=== PATIENT | female | born 2005 | race Two or more races ===

== ENCOUNTER 2025-07-11 06:37 | Inpatient (IN) | payer OTHER ==
[~2025-07-11] VITALS: Ht 170.2 cm; Wt 52.4 kg
--- NOTE | 2025-07-11 06:47 | ED.PDOC ---
GI ASSESSMENT HPI Comments 19 year old female JACEY presenting to the ED with chief complaint of abdominal pain. Patient reports that she has been experiencing generalized abdominal pain yesterday around 7pm before eating, however, after eating she started to have associated symptoms of nausea and vomiting with increased pain. Patient relays that she has not had any bowel movement or passing of gas since onset of pain. Patient states she was seen at [facility] ER and was told that a CT performed showed a bowel obstruction, being transferred here for further evaluation and treatment. Patient denies any fever, chills, dysuria, flank pain, diarrhea, or headache. Time Seen by MD: 06:46 Reviewed Notes: Nurses Notes, Turf Keeper Notes, Medications, Allergies Allergies: Coded Allergies: Iodine (Verified Allergy, Intermediate, 07/11/25) Latex (Verified Allergy, Intermediate, 07/11/25) Information Source: Patient, Emergency Med Personnel Mode of Arrival: EMS Timing: Hours Duration: Since onset Prehospital treatment: None Quality: Aching Vomitus: Watery Stool: Impaction Severity: Moderate Recent: None Recent Hx of: None Pain Location: Diffuse Modifying Factors: Nothing Associated sign and symptoms: Nausea, Vomiting, Abdominal Pain Past Medical History PAST MEDICAL HISTORY: Denies Surgical History: Denies all surgeries ASSISTANT GM OF CONTENT & DELIVERY History: No Pertinent ASSISTANT GM OF CONTENT & DELIVERY History Family History Family History: Reviewed,noncontributory to illness Social History Smoker: Non-Smoker Alcohol: Denies ETOH Use Drugs: Denies Drug Use Lives In: Home Constitutional: denies: chills, diaphoresis, fatigue, fever, malaise, sweats, weakness, others EENTM: denies: blurred vision, double vision, ear bleeding, ear discharge, ear drainage, ear pain, ear ringing, eye pain, eye redness, hearing loss, mouth pain, mouth swelling, nasal discharge, nose bleeding, nose congestion, nose pain, photophobia, tearing, throat pain, throat swelling, voice changes, others Respiratory: denies: cough, hemoptysis, orthopnea, SOB at rest, shortness of breath, SOB with excertion, stridor, wheezing, others Cardiovascular: denies: chest pain, dizzy spells, diaphoresis, Dyspnea on exertion, edema, irregular heart beat, left arm pain, lightheadedness, palpitations, PND, syncope, others Gastrointestinal: reports: abdominal pain, nausea, vomiting; denies: abdomen distended, blood streaked bowels, constipated, diarrhea, dysphagia, difficulty swallowing, hematemesis, melena, poor appetite, poor fluid intake, rectal bleeding, rectal pain, others Genitourinary: denies: abnormal vagina bleeding, burning, dyspareunia, dysuria, flank pain, frequency, hematuria, incontinence, pain, , vagina discharge, urgency, others Neurological: denies: dizziness, fainting, headache, left sided numbness, left sided weakness, numbness, paresthesia, pre-existing deficit, right sided numbness, right sided weakness, seizure, speech problems, tingling, tremors, weakness, others Musculoskeletal: denies: back pain, gout, joint pain, joint swelling, muscle pain, muscle stiffness, neck pain, others Integumetry: denies: bruises, change in color, change in hair/nails, dryness, laceration, lesions, lumps, rash, wounds, others Allergic/Immunocompromised: denies: Difficulty Healing, Frequent Infections, Hives, Itching, others Hematologic/Lymphatic: denies: anemia, blood clots, easy bleeding, easy bruising, swollen glands, others Endocrine: denies: excessive hunger, excessive sweating, excessive thirst, excessive urination, flushing, intolerance to cold, intolerance to heat, unexpl ained weight gain, unexplained weight loss, others Psychiatric: denies: anxiety, bipolar disorder, depression, hopeless, panic disorder, schizophrenia, sleepless, suicidal, others All Other Systems: Reviewed and Negative Physical Exam General Appearance: Moderate Distress, Normal HEENT: Normal ENT Inspection, Pharynx Normal, TMs Normal Neck: Full Range of Motion, Non-Tender, Normal, Normal Inspection Respiratory: Chest Non-Tender, Lungs Clear, No Accessory Muscle Use, No Respiratory Distress, Normal Breath Sounds Cardiovascular: No Edema, No JVD, No Murmur, No Gallop, Normal Peripheral Pulses, Regular Rate/Rhythm Breast Exam: Deferred Gastrointestinal: No Organomegaly, Non Tender, No Pulsatile Mass, Normal Bowel Sounds, Soft Genitalia: Deferred Pelvic: Deferred Rectal: Deferred Extremities: No calf tenderness, Normal capillary refill, Normal inspection, Normal range of motion, Non-tender, No pedal edema Musculoskeletal : Apperance: Normal Neurologic: Alert, lcsw II-XII nml as Tested, No Motor Deficits, Normal Affect, Normal Mood, No Sensory Deficits Cerebellar Function: Normal Reflexes: Normal Skin: Dry, Normal Color, Warm Peripheral Pulses: 3+ Radial (R), 3+ Radial (L) Lymphatic: No Adenopathy Was a procedure done? Was a procedure done?: No GI differential Dx Differential Diagnosis: Constipation, Diverticular disease, Esophagitis, Gastritis/PUD, Gastroenteritis, UTI, Dehydration, Electrolyte Imbalance, Food Poisoning, Bacterial, Viral X-Ray, Labs, Meds, VS Vital Signs Date Time Temp Pulse Resp B/P (MAP) Pulse Ox O2 Delivery O2 Flow Rate FiO2 07/11/25 08:15 98.0 68 16 117/74 (88) 100 98.0 07/11/25 06:52 98.6 68 15 118/74 99 98.6 Lab Test 07/11/25 07:14 Range/Units White Blood Count 6.1 4.4-10.8 10^3/uL Red Blood Count 5.02 4.0-5.20 10^6/uL Hemoglobin 13.2 12.2-16.2 g/dL Hematocrit 39.5 36.0-46.0 % Mean Corpuscular Volume 78.7 L 80.0-100.0 fL Mean Corpuscular Hemoglobin 26.2 L 28.0-32.0 pg Mean Corpuscular Hemoglobin Concent 33.3 32.0-36.0 g/dL Red Cell Distribution Width 13.2 11.8-14.3 % Platelet Count 205 140-450 10^3/uL Mean Platelet Volume 9.7 6.9-10.8 fL Neutrophils (%) (Auto) 61.8 37.0-80.0 % Lymphocytes (%) (Auto) 27.7 10.0-50.0 % Monocytes (%) (Auto) 7.9 0.0-12.0 % Eosinophils (%) (Auto) 2.2 0.0-7.0 % Basophils (%) (Auto) 0.4 0.0-2.0 % Neutrophils # (Auto) 3.8 1.6-8.6 10 ^3/uL Lymphocytes # (Auto) 1.7 0.4-5.4 10 ^3/uL Monocytes # (Auto) 0.5 0-1.3 10 ^3/uL Eosinophils # (Auto) 0.1 0-0.8 10 ^3/uL Basophils # (Auto) 0 0-0.2 10 ^3/uL Nucleated Red Blood Cells 0.1 % Sodium Level 141 136-145 mmol/L Potassium Level 3.9 3.5-5.1 mmol/L Chloride Level 106 98-107 mmol/L Carbon Dioxide Level 27 20-31 mmol/L Anion Gap 8 5-15 Blood Urea Nitrogen 11 9-23 mg/dL Creatinine 0.90 0.550-1.02 mg/dL Glomerular Filtration Rate Calc 94 >90 mL/min BUN/Creatinine Ratio 12.2 10.0-20.0 Serum Glucose 86 74-106 mg/dL Calcium Level 9.0 8.7-10.4 mg/dL Total Bilirubin 0.3 0.2-1.0 mg/dL Aspartate Amino Transferase (AST) 12 L 13-40 U/L Alanine Aminotransferase (ALT) 16 7-40 U/L Alkaline Phosphatase 92 46-116 U/L Total Protein 7.0 5.7-8.2 g/dL Albumin 4.3 3.2-4.8 g/dL Current Medications Medications (Trade) Dose Ordered Sig/Denis Route Start Time Stop Time Status Last Admin Sodium Chloride 1,000 ml @ 1,000 mls/hr Q1H ONCE IVB 07/11/25 07:00 07/11/25 07:59 DC 07/11/25 08:12 Ondansetron HCl (Zofran Po) 4 mg ONCE ONCE PO 07/11/25 07:00 07/11/25 07:01 DC 07/11/25 08:12 Sodium Chloride 1,000 ml @ 150 mls/hr Q6H40M ONCE IV 07/11/25 07:00 07/11/25 13:39 07/11/25 08:13 Patient alert. Came in because of abdominal pain. Had nausea vomiting last night. Vitals stable. Does not seem to be in distress. Establish intravenous access. Was given fluids. Was given morphine. Was given Zofran. Reviewed her previous visit. Continue to monitor. [facility] [id number] [place] [id number] Ph: [phone] DIAGNOSTIC IMAGING Diagnostic Imaging Report : [id number] Signed PATIENT: JOHN JAYACCT: [id number] UNIT: [id number] : 2005 LOC: ER ROOM / BED: / AGE / SEX: 19 / F ADM STATUS: REG ER SERVICE 0733 ORDERING PHYSICIAN: RICHI TIAN MD PROCEDURE(s): SMBG - SMALL BOWEL SERIES-W GASTROGRA REASON: SBO ORDER NUMBER(s): [id number], ACCESSION NUMBER(s): [id number] Procedure: XY SMALL BOWEL SERIES-W GASTROGRA Reason for study/Clinical History: SBO Comparison Study: None Technique: Single contrast small bowel series performed. FINDINGS/IMPRESSION: Initial fur blower view of the abdomen and pelvis appears demonstrates no acute process. Contrast is identified within the colon by 1 hour. This represents a normal small bowel transit time. ATED BY: KEITH KELLER MD DICTATED DATE/TIME: 07/11/25 100 SIGNED BY: KEITH KELLER MD SIGNED DATE/TIME: 07/11/25 100 CC: Images Reviewed?: Images reviewed and evaluated by me Time of 1ST Reevaluation: 07:39 Reevaluation 1ST: Unchanged Patient Education/Counseling: Diagnosis, Treatment Family Education/Counseling: Diagnosis, Treatment SEPSIS Sepsis Screen Physician Orders Urinalysis (07/11/25 06:52) Sodium Chloride 0.9% (07/11/25 07:00) Small Bowel Series-W Gastrogra (07/11/25 07:33) Vital Signs Date Time Temp Pulse Resp B/P (MAP) Pulse Ox O2 Delivery O2 Flow Rate FiO2 07/11/25 08:15 98.0 68 16 117/74 (88) 100 98.0 07/11/25 06:52 98.6 68 15 118/74 99 98.6 Laboratory Tests Test 07/11/25 07:14 White Blood Count 6.1 10^3/uL (4.4-10.8) Medications Medications Dose Ordered Sig/Denis Route Start Time Stop Time Status Last Admin Dose Admin Ondansetron HCl 4 mg ONCE ONCE PO 07/11/25 07:00 07/11/25 07:01 DC 07/11/25 08:12 Sodium Chloride 1,000 ml @ 150 mls/hr Q6H40M ONCE IV 07/11/25 07:00 07/11/25 13:39 8/29/25 08:13 Sodium Chloride 1,000 ml @ 1,000 mls/hr Q1H ONCE IVB 07/11/25 07:00 07/11/25 07:59 DC 07/11/25 08:12 Departure 1 Departure Time of Disposition: 07:00 Impression: Primary Impression: Abdominal pain Qualified Codes: R10.84 - Generalized abdominal pain Additional Impression: Small bowel obstruction Disposition: ADMITTED INPATIENT Admit to: Med Surg Condition: Guarded Critical Care Note Critical Care Time?: No Stability Stability form required: No Heart Score Heart Score: Heart Score Response (Comments) Value History N/A 0 EKG N/A 0 Age N/A 0 Risk Factors N/A 0 Troponin N/A 0 Total 0 I personally scribed for RICHI TIAN MD ([email or web address]) on 07/11/25 at 06:47. Electronically submitted by Nura Munoz ([email or web address]). I personally scribed for RICHI TIAN MD ([email or web address]) on 07/11/25 at 10:17. Electronically submitted by Nura Munoz ([email or web address]). RICHI TIAN MD Jul 11, 2025 06:47
[2025-07-11 07:41] LABS: Hemoglobin 13.2 g/dL (12.2-16.2); Mean Corpuscular Volume 78.7 fL (80.0-100.0)
[2025-07-11 07:43] LABS: Hematocrit 39.5 % (36.0-46.0); Mean Corpuscular Hemoglobin 26.2 pg (28.0-32.0); Nucleated Red Blood Cells % 0.1 %
[2025-07-11 07:53] LABS: Alanine Aminotransferase 16 U/L (7-40); Albumin 4.3 g/dL (3.2-4.8); Alkaline Phosphatase 92 U/L (46-116); Anion Gap 8 (5-15); BUN/Creatinine Ratio 12.2 (10.0-20.0); Blood Urea Nitrogen 11 mg/dL (9-23); Calcium 9.0 mg/dL (8.7-10.4); Carbon Dioxide 27 mmol/L (20-31); Chloride 106 mmol/L (98-107); Glucose 86 mg/dL (74-106); Potassium 3.9 mmol/L (3.5-5.1); Sodium 141 mmol/L (136-145); Total Protein 7.0 g/dL (5.7-8.2)
[2025-07-11 07:54] LABS: Bilirubin, Total 0.3 mg/dL (0.2-1.0)
[2025-07-11] MEDS: SODIUM CHLORIDE 0.9% 1,000 ML IVB ONE (08:12)
[2025-07-11] MEDS: ONDANSETRON ODT 4 MG TAB PO ONE (08:12)
[2025-07-11] MEDS: SODIUM CHLORIDE 0.9% 1,000 ML IV ONE (08:13)
[2025-07-11] MEDS: MORPHINE SULFATE 4 MG/ML SYR/VIAL IV ONE (08:57)
[2025-07-11] MEDS: GASTROGRAFIN 120 ML SOL ONE (10:07)
--- NOTE | 2025-07-11 10:11 | DVH ---
Procedure: XY SMALL BOWEL SERIES-W GASTROGRA Reason for study/Clinical History: SBO Comparison Study: None Technique: Single contrast small bowel series performed. FINDINGS/IMPRESSION: Initial supervisor webbing view of the abdomen and pelvis appears demonstrates no acute process. Contrast is identified within the colon by 1 hour. This represents a normal small bowel transit time .
[2025-07-11] MEDS ORDERED: MORPHINE SULFATE INJ 2 MG/ml SYRG IV PRN (11:00)
[2025-07-11] MEDS ORDERED: ONDANSETRON HCL 4 MG/2 ML VIAL IV PRN (11:00)
[2025-07-11] MEDS ORDERED: ACETAMINOPHEN 325 MG TAB PO PRN (11:00)
--- NOTE | 2025-07-11 11:05 | DVHHP2 ---
History of Present Illness Reason for Visit: Abdominal pain History of Present Illness Stormy Gonzales is a 19-year-old female with no past medical history who presents to the ED with abdominal pain that started yesterday. Patient had a CT scan last night at [facility] as her mom is in the service and findings moderately distended small bowel loops with relative decompression of distal small bowel, concerning for SBO. Patient was transferred here via EMS. Patient reports that she thought it was due to her not eating so she decided to eat last night but had no relief. Patient denies any use of substances or alcohol or tobacco use. Patient denies any recent travels, recent ingestion of spoiled food, recent trauma or injury, recent sick contacts, chest pain, shortness of breath, fever, chills, lightheadedness, weakness, dizziness, or urinary symptoms. 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 Past Surgical History: None Family History: None Smoke: No ALCOHOL: none Drugs: None Lives: with Family Domestic Violence: Neg Review of Systems Gastrointestinal: Abdominal Pain Allergies: Coded Allergies: Iodine (Verified Allergy, Intermediate, 07/11/25) Latex (Verified Allergy, Intermediate, 07/11/25) Exam Vital Signs Vital Signs Date Time Temp Pulse Resp B/P (MAP) Pulse Ox O2 Delivery O2 Flow Rate FiO2 07/11/25 08:15 98.0 68 16 117/74 (88) 100 98.0 General Appearance: Alert, Oriented X3, Cooperative, No acute distress HEENT: Atraumatic, PERRLA, EOMI, Mucous membr. moist/pink Respiratory: Clear to auscultation, Normal air movement Cardiovascular: Regular rate, Normal S1, Normal S2, No murmurs Abdominal: Soft Extremities: No clubbing, No cyanosis, No edema, Normal pulses, No tenderness/swelling Skin: No rashes, No breakdown, No significant lesion Neuro: Normal gait, Normal speech, Strength at 5/5 X4 ext, Normal tone, Sensation intact Psych/Mental Status: Mental status NL Labs/Xrays Labs Test 07/11/25 07:14 Range/Units White Blood Count 6.1 4.4-10.8 10^3/uL Red Blood Count 5.02 4.0-5.20 10^6/uL Hemoglobin 13.2 12.2-16.2 g/dL Hematocrit 39.5 36.0-46.0 % Mean Corpuscular Volume 78.7 L 80.0-100.0 fL Mean Corpuscular Hemoglobin 26.2 L 28.0-32.0 pg Mean Corpuscular Hemoglobin Concent 33.3 32.0-36.0 g/dL Red Cell Distribution Width 13.2 11.8-14.3 % Platelet Count 205 140-450 10^3/uL Mean Platelet Volume 9.7 6.9-10.8 fL Neutrophils (%) (Auto) 61.8 37.0-80.0 % Lymphocytes (%) (Auto) 27.7 10.0-50.0 % Monocytes (%) (Auto) 7.9 0.0-12.0 % Eosinophils (%) (Auto) 2.2 0.0-7.0 % Basophils (%) (Auto) 0.4 0.0-2.0 % Neutrophils # (Auto) 3.8 1.6-8.6 10 ^3/uL Lymphocytes # (Auto) 1.7 0.4-5.4 10 ^3/uL Monocytes # (Auto) 0.5 0-1.3 10 ^3/uL Eosinophils # (Auto) 0.1 0-0.8 10 ^3/uL Basophils # (Auto) 0 0-0.2 10 ^3/uL Nucleated Red Blood Cells 0.1 % Sodium Level 141 136-145 mmol/L Potassium Level 3.9 3.5-5.1 mmol/L Chloride Level 106 98-107 mmol/L Carbon Dioxide Level 27 20-31 mmol/L Anion Gap 8 5-15 Blood Urea Nitrogen 11 9-23 mg/dL Creatinine 0.90 0.550-1.02 mg/dL Glomerular Filtration Rate Calc 94 >90 mL/min BUN/Creatinine Ratio 12.2 10.0-20.0 Serum Glucose 86 74-106 mg/dL Calcium Level 9.0 8.7-10.4 mg/dL Total Bilirubin 0.3 0.2-1.0 mg/dL Aspartate Amino Transferase (AST) 12 L 13-40 U/L Alanine Aminotransferase (ALT) 16 7-40 U/L Alkaline Phosphatase 92 46-116 U/L Total Protein 7.0 5.7-8.2 g/dL Albumin 4.3 3.2-4.8 g/dL Procedure: XY SMALL BOWEL SERIES-W GASTROGRA Reason for study/Clinical History: SBO Comparison Study: None Technique: Single contrast small bowel series performed. FINDINGS/IMPRESSION: Initial gandy dancer view of the abdomen and pelvis appears demonstrates no acute process. Contrast is identified within the colon by 1 hour. This represents a normal small bowel transit time. SEPSIS Sepsis Screen Date sepsis recognized/suspect: Jul 11, 2025 Time Sepsis recognized/suspect: 634 Recent Procedure: No On Antibiotic Therapy: No Respiratory Rate >20: No Heart Rate >90: No Temp<36 C (96.8 F) or >38.3 C: No SBP <90 or MAP <65 mmHG: No New Acute Mental Status Change: No Is the patient on CPAP, BIPAP,: No Physician Orders Urinalysis (07/11/25 06:52) Sodium Chloride 0.9% (07/11/25 07:00) Small Bowel Series-W Gastrogra (07/11/25 07:33) Vital Signs Date Time Temp Pulse Resp B/P (MAP) Pulse Ox O2 Delivery O2 Flow Rate FiO2 07/11/25 08:15 98.0 68 16 117/74 (88) 100 98.0 07/11/25 06:52 98.6 68 15 118/74 99 98.6 Laboratory Tests Test 07/11/25 07:14 White Blood Count 6.1 10^3/uL (4.4-10.8) Medications Medications Dose Ordered Sig/Denis Route Start Time Stop Time Status Last Admin Dose Admin Ondansetron HCl 4 mg ONCE ONCE PO 07/11/25 07:00 07/11/25 07:01 DC 07/11/25 08:12 4 MG Sodium Chloride 1,000 ml @ 150 mls/hr Q6H40M ONCE IV 07/11/25 07:00 07/11/25 13:39 07/11/25 08:13 150 MLS/HR Sodium Chloride 1,000 ml @ 1,000 mls/hr Q1H ONCE IVB 07/11/25 07:00 07/11/25 07:59 DC 07/11/25 08:12 1,000 MLS/HR Assessment/Plan Assessment/Plan Assessment Intractable abdominal pain likely due to SBO Plan Admit to med surge Pain Management Antiemetics Bowel series UA UDS HCG NPO IV fluids Home medications reconciled DVT prophylaxis-SCDs PUD prophylaxis-PPIs Discussed plan of care with patient, patient's mom and nurse General surgery consult [id number] Preventive counseling healthy eating habits, physical activity, and regular checkups Plan discussed with: Patient Date of Service: Jul 11, 2025 Billing Provider: DARIELA TOLEDO Common Visit Codes: [id number] INP/OBS CARE (HIGH) Secondary Visit Codes: [id number] COUNSELING IND DARIELA TOLEDO Jul 11, 2025 11:05
[2025-07-11] MEDS: SODIUM CHLORIDE 0.9% 1,000 ML IV SCH (11:20)
[2025-07-11] MEDS ORDERED: BUPR150T18 PO (11:24)
[2025-07-11] MEDS ORDERED: HYDRX10T PO (11:24)
[2025-07-11 13:05] VITALS: BP 107/73; PULSE 78; RESP 18; TEMP 98.8; O2SAT 95
[2025-07-11] MEDS: hydrOXYzine HCL 10 MG TAB PO SCH (14:00)
--- NOTE | 2025-07-11 14:34 | DVHINCON2 ---
Date of service: Jul 11, 2025 History of Present Illness 19-year-old female complaining of one day history of right-sided abdominal pain associated with nausea. Patient was initially seen at an outside facility and when imaging studies showed possible small bowel obstruction. Patient was transferred over to [facility]. Currently patient denies any abdominal pain and reports having a bowel movement. Past Medical History Anxiety disorder Past Surgical History None Family History Noncontributory Social History No alcohol, tobacco, IV drug use Allergies: Coded Allergies: Iodine (Verified Allergy, Intermediate, 07/11/25) Latex (Verified Allergy, Intermediate, 07/11/25) Home Meds Reported Medications Hydroxyzine Hcl (Hydroxyzine Hcl) 10 Mg Tab, 1 TAB PO TID 07/11/25 Bupropion Hcl (Bupropion Hcl Xl) 150 Mg Tab, 1 TAB PO DAILY 07/11/25 Current Medications Current Medications Medications (Trade) Dose Ordered Sig/Denis Route PRN Reason Start Time Stop Time Status Last Admin Sodium Chloride 1,000 ml @ 60 mls/hr [id number] IV 07/11/25 11:00 Acetaminophen/ Hydrocodone Bitart ([place] 5/325MG Tab) 1 tab Q4HP PRN PO MODERATE PAIN (4-6 PAIN SCALE) 07/11/25 11:00 Ondansetron HCl (Zofran) 4 mg Q4HP PRN IV NAUSEA / VOMITING 07/11/25 11:00 Acetaminophen (Tylenol Tablet) 650 mg Q6HP PRN PO PAIN SCALE 1-3 OR TEMP>100.4 07/11/25 11:00 Morphine Sulfate 2 mg Q4HPRN PRN IV SEVERE PAIN (7-10 PAIN SCALE) 07/11/25 11:00 Hydroxyzine HCl (Vistaril Oral) 10 mg TID PO 07/11/25 14:00 Patient Own Medication 1 tab DAILY PO 07/12/25 10:00 Vital Signs Vital Signs Date Time Temp Pulse Resp B/P (MAP) Pulse Ox O2 Delivery O2 Flow Rate FiO2 07/11/25 13:05 98.8 78 18 107/73 (84) 95 98.8 Physical Exam GEN: Age-appropriate female in no acute distress. Alert. HEENT: Normocephalic atraumatic. Moist mucous membranes. Anicteric sclerae. CV: RRR Respiratory: CTAB ABD: Soft. Nontender nondistended. Small-bowel follow-through: Normal transit Labs/Diagnostic Data Labs Test 07/11/25 07:14 Range/Units White Blood Count 6.1 4.4-10.8 10^3/uL Red Blood Count 5.02 4.0-5.20 10^6/uL Hemoglobin 13.2 12.2-16.2 g/dL Hematocrit 39.5 36.0-46.0 % Mean Corpuscular Volume 78.7 L 80.0-100.0 fL Mean Corpuscular Hemoglobin 26.2 L 28.0-32.0 pg Mean Corpuscular Hemoglobin Concent 33.3 32.0-36.0 g/dL Red Cell Distribution Width 13.2 11.8-14.3 % Platelet Count 205 140-450 10^3/uL Mean Platelet Volume 9.7 6.9-10.8 fL Neutrophils (%) (Auto) 61.8 37.0-80.0 % Lymphocytes (%) (Auto) 27.7 10.0-50.0 % Monocytes (%) (Auto) 7.9 0.0-12.0 % Eosinophils (%) (Auto) 2.2 0.0-7.0 % Basophils (%) (Auto) 0.4 0.0-2.0 % Neutrophils # (Auto) 3.8 1.6-8.6 10 ^3/uL Lymphocytes # (Auto) 1.7 0.4-5.4 10 ^3/uL Monocytes # (Auto) 0.5 0-1.3 10 ^3/uL Eosinophils # (Auto) 0.1 0-0.8 10 ^3/uL Basophils # (Auto) 0 0-0.2 10 ^3/uL Nucleated Red Blood Cells 0.1 % Sodium Level 141 136-145 mmol/L Potassium Level 3.9 3.5-5.1 mmol/L Chloride Level 106 98-107 mmol/L Carbon Dioxide Level 27 20-31 mmol/L Anion Gap 8 5-15 Blood Urea Nitrogen 11 9-23 mg/dL Creatinine 0.90 0.550-1.02 mg/dL Glomerular Filtration Rate Calc 94 >90 mL/min BUN/Creatinine Ratio 12.2 10.0-20.0 Serum Glucose 86 74-106 mg/dL Calcium Level 9.0 8.7-10.4 mg/dL Total Bilirubin 0.3 0.2-1.0 mg/dL Aspartate Amino Transferase (AST) 12 L 13-40 U/L Alanine Aminotransferase (ALT) 16 7-40 U/L Alkaline Phosphatase 92 46-116 U/L Total Protein 7.0 5.7-8.2 g/dL Albumin 4.3 3.2-4.8 g/dL Assessment 1. Resolved partial small bowel obstruction Plan/Recommendation 1. No acute indication for surgical intervention at this time. Plan discussed with: Patient, Other (mom) MIRACLE BYERS MD Jul 11, 2025 14:34
[2025-07-11 16:51] VITALS: BP 101/56; PULSE 91; RESP 18; TEMP 97.1; O2SAT 98
[2025-07-11 18:25] LABS: Urine Protein, UAD Negative (Negative)
[2025-07-11 18:36] LABS: Amphetamine Screen, Urine Neg (NEGATIVE)
[2025-07-11 18:43] LABS: Barbiturate Scree,Urine Neg (NEGATIVE); Benzodiazephine Screen, Urine Neg (NEGATIVE); Cannabinoid Screen, Urine Neg (NEGATIVE); Cocaine Screen, Urine Neg (NEGATIVE); Opiate Scree,Urine Neg (NEGATIVE); Phencyclidine Screen, Urine Neg (NEGATIVE)
[2025-07-11 20:17] VITALS: PULSE 93; RESP 18; O2SAT 98
[2025-07-11 21:00] VITALS: BP 102/57; PULSE 75; RESP 18; TEMP 97.9; O2SAT 98
[2025-07-12] VITALS (8 sets, daily range): BP systolic 95–117; BP diastolic 53–74; PULSE 60–90; RESP 17–20; TEMP 97–98.3; O2SAT 96–98
[2025-07-12 07:19] LABS: Hemoglobin 12.0 g/dL (12.2-16.2)
[2025-07-12 07:21] LABS: Hematocrit 36.8 % (36.0-46.0); Mean Corpuscular Hemoglobin 25.7 pg (28.0-32.0); Mean Corpuscular Volume 78.7 fL (80.0-100.0); Nucleated Red Blood Cells % 0.0 %
[2025-07-12 07:24] LABS: Alanine Aminotransferase 13 U/L (7-40); Alkaline Phosphatase 78 U/L (46-116); Anion Gap 7 (5-15); BUN/Creatinine Ratio 14.1 (10.0-20.0); Blood Urea Nitrogen 10 mg/dL (9-23); Carbon Dioxide 23 mmol/L (20-31); Glucose 79 mg/dL (74-106); Potassium 3.8 mmol/L (3.5-5.1); Sodium 140 mmol/L (136-145); Total Protein 5.8 g/dL (5.7-8.2)
[2025-07-12 07:25] LABS: Albumin 3.7 g/dL (3.2-4.8); Bilirubin, Total 0.4 mg/dL (0.2-1.0)
[2025-07-12 07:27] LABS: Calcium 8.3 mg/dL (8.7-10.4); Chloride 110 mmol/L (98-107)
--- NOTE | 2025-07-12 10:26 | DVHPN2 ---
Subjective The patient is seen and examined at bedside. The patient feels better. Abdominal pain improved. Patient only had liquid stool right now. Reviewed: Care Plan, H&P, Labs, Medications, Previous Orders, Radiology Changes from previous H/P or p: No Changes Gastrointestinal: Abdominal Pain Objective Vitals Vital Signs Date Time Temp Pulse Resp B/P (MAP) Pulse Ox O2 Delivery O2 Flow Rate FiO2 07/12/25 09:00 98.3 74 20 95/53 (67) 96 98.3 07/11/25 20:17 Room Air* 0 21 Intake/Output Intake and Output 07/12/25 07:00 Intake Total 1550 ml Balance 1550 ml Intake Oral 400 ml IV Total 1150 ml General Appearance: Alert, Oriented X3, Cooperative, No acute distress HEENT: Atraumatic, PERRLA, EOMI, Mucous membr. moist/pink Neck: Supple Lungs: Clear to auscultation, Normal air movement Cardiovascular: Regular rate, Normal S1, Normal S2, No murmurs, Gallops, Rubs Abdomen: Normal bowel sounds, Soft, Other (Diffuse tenderness) Neuro: Cranial nerves 3-12 NL Medications Current Medications Medications Dose Ordered Sig/Denis Route Start Time Stop Time Status Last Admin Dose Admin Sodium Chloride 1,000 ml @ 60 mls/hr [id number] IV 07/11/25 11:00 07/11/25 15:40 60 MLS/HR Acetaminophen/ Hydrocodone Bitart 1 tab Q4HP PRN PO 07/11/25 11:00 Ondansetron HCl 4 mg Q4HP PRN IV 07/11/25 11:00 Acetaminophen 650 mg Q6HP PRN PO 07/11/25 11:00 Morphine Sulfate 2 mg Q4HPRN PRN IV 07/11/25 11:00 Hydroxyzine HCl 10 mg TID PO 07/11/25 14:00 07/11/25 22:09 10 MG Patient Own Medication 1 tab DAILY PO 07/12/25 10:00 Laboratory Results Laboratory Tests 07/12/25 05:52 Chemistry Test 07/12/25 05:52 Albumin 3.7 g/dL (3.2-4.8) Calcium Level 8.3 mg/dL (8.7-10.4) L Total Protein 5.8 g/dL (5.7-8.2) LFT Test 07/12/25 05:52 Alanine Aminotransferase (ALT) 13 U/L (7-40) Alkaline Phosphatase 78 U/L (46-116) Aspartate Amino Transferase (AST) 12 U/L (13-40) L Total Bilirubin 0.4 mg/dL (0.2-1.0) Urinalysis Test 07/11/25 17:15 Urine Color Yellow (Yellow) Urine Clarity Clear (Clear) Urine pH 6.0 (5.0-9.0) Urine Specific [place]up 1.033 (1.001-1.035) Urine Protein Negative (Negative) Urine Ketones 1+ (Negative) H Urine Blood Negative /uL (Negative) Urine Nitrite Negative (Negative) Urine Bilirubin Negative (Negative) Urine Urobilinogen Normal mg/dL (Negative) Urine Leukocyte Esterase Negative /uL (Negative) Urine RBC 1 /hpf (0 - 4) Urine Microscopic WBC 1 /HPF (0-5) Urine Squamous Epithelial Cells Few /hpf (<5) Urine Bacteria None seen /hpf (None Seen) Urine Mucus Few (None Seen) Urine Glucose Normal mg/dL (Normal) Labs and/or images reviewed: Labs reviewed by me Assessment/Plan Assessment/Plan Intractable abdominal pain likely due to SBO Per surgeon the patient did not need any surgery since she already had bowel movement. We will advance diet to regular diet. We will monitor her liquid stool or diarrhea. Discharge planning. This medical document was created using an electronic medical record system with [employer] direct computerized dictation system. Although this document has been carefully reviewed, there may still be some phonetic and typographical errors. These areas are purely typographical due to imperfections of the software programs, and do not reflect any compromise in the patient's medical care. Plan discussed with: Patient Date of Service: Jul 12, 2025 Billing Provider: NEFTALI PURI MD Common Visit Codes: [id number] INP/OBS CARE(HIGH) NEFTALI PURI MD Jul 12, 2025 10:26
[2025-07-12] MEDS: ACETAMINOPHEN 325 MG TAB PO PRN (12:52)
[2025-07-12] MEDS: HYDROcodone-ACET 5/325MG TAB PO PRN (18:59)
[2025-07-13 01:00] VITALS: BP 119/74; PULSE 83; RESP 19; TEMP 97.5; O2SAT 100
[2025-07-13 05:00] VITALS: BP 105/60; PULSE 74; RESP 18; TEMP 97.9; O2SAT 97
[2025-07-13 09:00] VITALS: BP 94/53; PULSE 75; RESP 20; TEMP 98.4; O2SAT 99
--- NOTE | 2025-07-13 11:34 | DVHDS2 ---
Discharge Summary Date of Admission Jul 11, 2025 at 10:51 Date of Discharge: Jul 13, 2025 Admitting Diagnosis Intractable abdominal pain likely due to SBO Labs/Diagnostic Data: Laboratory Results Test 07/12/25 05:52 07/11/25 17:15 07/11/25 07:14 White Blood Count 3.9 10^3/uL (4.4-10.8) Red Blood Count 4.68 10^6/uL (4.0-5.20) Hemoglobin 12.0 g/dL (12.2-16.2) Hematocrit 36.8 % (36.0-46.0) Mean Corpuscular Volume 78.7 fL (80.0-100.0) Mean Corpuscular Hemoglobin 25.7 pg (28.0-32.0) Mean Corpuscular Hemoglobin Concent 32.7 g/dL (32.0-36.0) Red Cell Distribution Width 13.0 % (11.8-14.3) Platelet Count 171 10^3/uL (140-450) Mean Platelet Volume 9.9 fL (6.9-10.8) Neutrophils (%) (Auto) 44.1 % (37.0-80.0) Lymphocytes (%) (Auto) 43.6 % (10.0-50.0) Monocytes (%) (Auto) 7.2 % (0.0-12.0) Eosinophils (%) (Auto) 4.5 % (0.0-7.0) Basophils (%) (Auto) 0.6 % (0.0-2.0) Neutrophils # (Auto) 1.7 10 ^3/uL (1.6-8.6) Lymphocytes # (Auto) 1.7 10 ^3/uL (0.4-5.4) Monocytes # (Auto) 0.3 10 ^3/uL (0-1.3) Eosinophils # (Auto) 0.2 10 ^3/uL (0-0.8) Basophils # (Auto) 0 10 ^3/uL (0-0.2) Nucleated Red Blood Cells 0.0 % Sodium Level 140 mmol/L (136-145) Potassium Level 3.8 mmol/L (3.5-5.1) Chloride Level 110 mmol/L (98-107) Carbon Dioxide Level 23 mmol/L (20-31) Anion Gap 7 (5-15) Blood Urea Nitrogen 10 mg/dL (9-23) Creatinine 0.71 mg/dL (0.550-1.02) Glomerular Filtration Rate Calc 126 mL/min (>90) BUN/Creatinine Ratio 14.1 (10.0-20.0) Serum Glucose 79 mg/dL (74-106) Calcium Level 8.3 mg/dL (8.7-10.4) Total Bilirubin 0.4 mg/dL (0.2-1.0) Aspartate Amino Transferase (AST) 12 U/L (13-40) Alanine Aminotransferase (ALT) 13 U/L (7-40) Alkaline Phosphatase 78 U/L (46-116) Total Protein 5.8 g/dL (5.7-8.2) Albumin 3.7 g/dL (3.2-4.8) Urine Color Yellow (Yellow) Urine Clarity Clear (Clear) Urine pH 6.0 (5.0-9.0) Urine Specific [place] 1.033 (1.001-1.035) Urine Protein Negative (Negative) Urine Ketones 1+ (Negative) Urine Blood Negative /uL (Negative) Urine Nitrite Negative (Negative) Urine Bilirubin Negative (Negative) Urine Urobilinogen Normal mg/dL (Negative) Urine Leukocyte Esterase Negative /uL (Negative) Urine RBC 1 /hpf (0 - 4) Urine Microscopic WBC 1 /HPF (0-5) Urine Squamous Epithelial Cells Few /hpf (<5) Urine Bacteria None seen /hpf (None Seen) Urine Mucus Few (None Seen) Urine Glucose Normal mg/dL (Normal) Urine Opiates Screen Neg (NEGATIVE) Urine Fentanyl Screen Neg (NEGATIVE) Urine Barbiturates Screen Neg (NEGATIVE) Urine Phencyclidine Screen Neg (NEGATIVE) Urine Amphetamines Screen Neg (NEGATIVE) Urine Benzodiazepines Screen Neg (NEGATIVE) Urine Cocaine Screen Neg (NEGATIVE) Urine Cannabinoids Screen Neg (NEGATIVE) Beta HCG, Quantitative < 0.0 mIU/mL (1.5-4.2) Other Laboratory Tests 07/12/25 05:52 Brief Hx & Hospital Course: This is a 19 years old female with no known past medical history come to emergency because of severe abdominal pain the patient had CT scan [facility] as her mom is in service and found to have moderate distention with the active decompression and distal small bowel concerning for small bowel obstruction. The patient was transferred to this hospital by EMS for treatment of small-bowel obstruction. The patient had NG tube placed. The patient has small-bowel follow through in the hospital which show no obstruction. Normal transition time through bowel. Patient was started diet and tolerate without pain. Surgeon see the patient intervention. Into discharge him home today. Advised her to follow up with primary care physician 1-2 weeks. Activity as tolerated. Diet per home diet. Physical exam: HEENT: Normocephalic atraumatic pupils equal react to light and accommodation. Extraocular muscles intact, conjunctiva pink, oropharynx moist, no thrush, no exudate. Lymphatic: No lymphadenopathy Cardiovascular exam: S1, S2 was heard. No murmurs, rubs, gallops Lung: Clear on auscultation bilaterally, no wheeze, rale, rhonchi. GI: Abdominal soft, nondistended, nontenderness, positive bowel sounds. Extremity: No crepitus, cyanosis, edema. Pedal pulses present bilateral. Full range of motion. Skin: Normal turgor, no rash. Psych: Alert, oriented x3. Neurology: No focal deficits, cranial nerve II to XII grossly intact. This medical document was created using an electronic medical record system with [employer] direct computerized dictation system. Although this document has been carefully reviewed, there may still be some phonetic and typographical errors. These areas are purely typographical due to imperfections of the software programs, and do not reflect any compromise in the patient's medical care. Condition at Discharge: Stable Final Diagnosis/Problems List Intractable abdominal pain likely due to SBO Discharge Disposition: Home Discharge Instruct/Medications Diet: Regular Activity: No Restrictions, As Tolerated Follow Up/Referral: pcp 1-2 weeks Medications: resume home meds Scheduled Bupropion Hcl (Bupropion Hcl Xl), 1 TAB PO DAILY, (Reported) Hydroxyzine Hcl (Hydroxyzine Hcl), 1 TAB PO TID, (Reported) Discharge Statement: "Patient was advised to return to the ER or call 911 if any headaches, dizziness, shortness of breath, chest pain, abdominal pain, bleeding, fevers, or worsening of medical condition. Patient was counseled about treatment plan, medications, possible side effects, patientverbalized understanding. All questions were answered to the best of my ability. This discharge took greater then 30 minutes in planning, reviewing documentation, counseling the patient, and discussing with other team members." ASSESSMENT ASSESSMENT Assessment sbo Date of Service: Jul 13, 2025 Billing Provider: NEFTALI PURI MD Common Visit Codes: 21291-DXK/OBS DISCH DAY >30min NEFTALI PURI MD Jul 13, 2025 11:34
[2025-07-13 13:00] VITALS: BP 114/75; PULSE 91; RESP 20; TEMP 99.4; O2SAT 100
== END 2025-07-13 14:44 | disposition home or self-care (01) | DRG 390 ==
LOC: EDBD 06:37 → ER 06:44 → OVERFLOW 10:51 → WEST WING 16:32
DX: K56.600 Partial intestinal obstruction, unspecified as to cause (principal); F41.9 Anxiety disorder, unspecified; Z88.0 Allergy status to penicillin; Z91.040 Latex allergy status; Z79.899 Other long term (current) drug therapy
CPT/HCPCS: 36415; 74250; 80053; 80307; 81001; 84702; 85025; 96360; G0378; Q0162